=== PATIENT | male | born 1980 | race Caucasian/White ===

== ENCOUNTER → 2017-05-28 09:13 | Outpatient (CLI) | payer OTHER, SELFPAY ==
[2017-05-29 08:28] LABS: Hep B Surface Antibodies Reactive (.); Hepatitis A AB, Total Positive (Negative)
== END ==
PROVIDERS: Visit Provider Family Medicine
DX: Z76.89 Persons encountering health services in other specified circumstances (principal)
CPT/HCPCS: 36415; 86706; 86708

== ENCOUNTER → 2018-10-06 10:49 | Outpatient (CLI) | payer OTHER, SELFPAY ==
[2015-07-03 21:48] VITALS: BMI 20.9
[2018-10-06 12:46] LABS: Vitamin D,25 Hydroxy 25.9 ng/mL (29.95-100.01)
[2018-10-06 13:07] LABS: ALB/GLOB Ratio 1.1 RATIO (0.9-2.4); AST(SGOT) 17 U/L (15-37); Alanine Aminotransfer ALT/SGPT 21 U/L (16-61); Albumin, Serum 3.9 g/dL (3.2-5.0); Alkaline Phosphatase 59 U/L (45-117); Anion Gap 9 (5-15); BUN 13 mg/dL (7-18); BUN/Creat Ratio 17.4 RATIO (10-20); Calcium,Total 8.7 mg/dL (8.5-10.1); Chloride 105 mmol/L (98-107); Creatinine, Serum 0.75 mg/dL (0.70-1.30); EST Glomerular Filtration Rate 123 mL/min (>60); Est Glom Filt Rate - Afr Amer 149 mL/min (>60); Globulin 3.5 g/dL (2.2-4.2); Glucose 98 mg/dL (74-106); Potassium 4.1 mmol/L (3.5-5.1); Protein, Total 7.4 g/dL (6.4-8.2); Sodium Level 143 mmol/L (136-145); Thyroid Stim Hormone (TSH) 1.73 uIU/mL (0.358-3.74)
[2018-10-07 16:07] LABS: Endomysial Antibody IgA Negative (Negative)
[2018-10-08 11:45] LABS: Deamidated Gliadin IgA 6 units (0-19); Deamidated Gliadin IgG 3 units (0-19); Immunoglobulin A 136 mg/dL (90-386); t-Transglutaminase IgA <2 U/mL (0-3)
== END ==
PROVIDERS: Family Provider Family Medicine; PCP Family Medicine; Referring Provider Family Medicine; Visit Provider Family Medicine
DX: Z82.62 Family history of osteoporosis (principal)
CPT/HCPCS: 36415; 80053; 82306; 82784; 83516; 84443; 86255

== ENCOUNTER → 2018-11-18 10:52 | Outpatient (CLI) | payer OTHER, SELFPAY ==
[2018-11-10 09:00] VITALS: BMI 21.6
--- NOTE | 2018-11-18 10:55 | ECHOD_ITS ---
Reason For Study: AFIB/FLUTTER Procedure This was a 2D Doppler, Color Flow transthoracic echocardiogram. Exam performed in department. Left Ventricle Normal LV size. Left ventricular systolic function is normal. The estimated ejection fraction is 60 %. Normal diastology for age. No regional wall motion abnormalities noted. Right Ventricle Normal RV size. Normal systolic function. Atria Normal left atrium. Normal right atrium. Mitral Valve Normal mitral valve. Tricuspid Valve Normal tricuspid valve. Normal pulmonary artery pressure. Aortic Valve Normal aortic valve. Trisinus/trileaflet aortic valve. Pulmonic Valve Normal pulmonic valve. Great Vessels Normal aortic root. The pulmonary artery is normal size. Normal inferior vena cava. Pericardium/Pleural No pericardial effusion. MMode/2D Measurements & Calculations LVIDd: 4.9 cm IVSd: 0.79 cm Ao root diam: 2.9 cm LVIDs: 3.0 cm LVPWd: 0.90 cm RVDd: 3.0 cm FS: 38.5 % LAV(MOD-bp): 27.5 ml LA A4 area: 12.5 cm2 LA dimension(2D): 3.2 cm LAV(MOD-bp) Indexed: 14.6 ml/m2 LAV(MOD-sp2): 28.2 ml LAV(MOD-sp4): 26.4 ml RA A4 area: 14.5 cm2 Time Measurements MV dec time: 0.21 sec Doppler Measurements & Calculations MV E max roger: 100.2 cm/sec Lat Peak E' Roger: 19.0 cm/sec Med Peak E' Roger: 15.3 cm/sec MV A max roger: 50.6 cm/sec E/E' lat: 5.3 E/E' med: 6.6 MV E/A: 2.0 Ao V2 max: 99.9 cm/sec LV V1 max: 93.5 cm/sec PA V2 max: 96.2 cm/sec Ao max P.0 mmHg LV V1 max P.5 mmHg Interpretation Summary Normal LV size. Left ventricular systolic function is normal. The estimated ejection fraction is 60 %. Normal diastology for age. Structurally normal valves. Ordering Physician: Edgar Teague Referring Physician: Glenroy Doherty Performed By: Marilee Luis, MILENA, RVT
== END ==
PROVIDERS: Family Provider Family Medicine; PCP Family Medicine; Referring Provider Internal Medicine Cardiovascular Disease; Visit Provider Internal Medicine Cardiovascular Disease
DX: I48.91 Unspecified atrial fibrillation (principal); Z82.49 Family history of ischemic heart disease and other diseases of the circulatory system
CPT/HCPCS: 93306

== ENCOUNTER → 2018-11-19 09:36 | Outpatient (CLI) | payer OTHER, SELFPAY ==
[2018-11-10 09:00] VITALS: BMI 21.6
[2018-11-19 10:35] LABS: AST(SGOT) 15 U/L (15-37); Alanine Aminotransfer ALT/SGPT 18 U/L (16-61); Alkaline Phosphatase 56 U/L (45-117); Bilirubin, Direct 0.15 mg/dL (0.00-0.30); Cholesterol 142 mg/dL (200); Globulin 3.6 g/dL (2.2-4.2); High Density Lipoprotein 48 mg/dL; Protein, Total 7.6 g/dL (6.4-8.2); Triglycerides 72 mg/dL; Very Low Density Lipoprotein 14 mg/dL (5-40)
== END ==
PROVIDERS: Family Provider Family Medicine; PCP Family Medicine; Referring Provider Internal Medicine Cardiovascular Disease; Visit Provider Internal Medicine Cardiovascular Disease
DX: Z82.49 Family history of ischemic heart disease and other diseases of the circulatory system (principal)
CPT/HCPCS: 36415; 80061; 80076

== ENCOUNTER → 2019-12-01 11:14 | Outpatient (CLI) | payer OTHER, SELFPAY ==
[2018-11-10 09:00] VITALS: BMI 21.6
[2019-12-01 16:00] LABS: Absolute Lymphocyte Count 1.45 X10^3/uL (0.83-4.51); Absolute Neutrophil Count 2.3 X10^3/uL (2.0-7.7); Basophil# 0.05 X10^3/uL; Basophil% 1.2 % (0-1); Eosinophil# 0.08 X10^3/uL; Eosinophils% 1.9 % (0-5); Hematocrit 38.6 % (40-54); Hemoglobin 12.3 g/dL (13.0-16.5); Lymphocyte # 1.45 X10^3/ul (4.0); Mean Corp Hgb Conc 31.9 g/dL (32-36); Mean Corpuscular Hgb 27.3 pg (27.0-32.0); Mean Corpuscular Volume 85.8 fL (80-94); Mean Platelet Vol. 10.4 fl (6.2-12.0); Monocyte# 0.37 X10^3/uL; Monocyte% 8.7 % (0-10); NRBC Flagged by Analyzer 0 % (0-5); Neutrophil # 2.31 X10^3/uL (2.7-7.7); Platelet Count 278 K/mm3 (150-450); RBC Distribution Width SD 37.4 fl (35.1-43.9); White Blood Count 4.3 K/mm3 (4.4-11.0)
[2019-12-01 16:14] LABS: Erythrocyte Sedimentation Rate 2 mm/hr (0-15)
[2019-12-01 16:49] LABS: AST(SGOT) 17 U/L (15-37); Alanine Aminotransfer ALT/SGPT 23 U/L (16-61); Albumin, Serum 4.1 g/dL (3.2-5.0); Alkaline Phosphatase 53 U/L (45-117); Anion Gap 5 (5-15); BUN 14 mg/dL (7-18); Bilirubin, Direct 0.15 mg/dL (0.00-0.30); Chloride 103 mmol/L (98-107); Creatinine, Serum 0.81 mg/dL (0.70-1.30); EST Glomerular Filtration Rate 111 mL/min (>60); Est Glom Filt Rate - Afr Amer 134 mL/min (>60); Globulin 3.7 g/dL (2.2-4.2); Glucose 79 mg/dL (74-106); Potassium 3.7 mmol/L (3.5-5.1); Protein, Total 7.8 g/dL (6.4-8.2); Sodium Level 138 mmol/L (136-145); Uric Acid 4.2 mg/dL (3.5-7.2)
[2019-12-02 10:43] LABS: Hepatitis C Antibody Non-Reactive (Nonreactive)
[2019-12-08 16:08] LABS: Complement C3 88 mg/dL (82-167); PROEL- A/G Ratio 1.2 (0.7-1.7); PROEL- Albumin 4.1 g/dL (2.9-4.4); PROEL- Alpha-1 Globulin 0.3 g/dL (0.0-0.4); PROEL- Alpha-2 Globulin 0.7 g/dL (0.4-1.0); PROEL- Gamma Globulin 1.4 g/dL (0.4-1.8); PROEL- Globulin, Total 3.3 g/dL (2.2-3.9); PROEL- TOTAL PROTEIN 7.4 g/dL (6.0-8.5)
[2019-12-08 16:35] LABS: Complement CH50 35 U/mL (>41)
== END ==
PROVIDERS: PCP Family Medicine; Referring Provider Family Medicine; Visit Provider Family Medicine
DX: L50.9 Urticaria, unspecified (principal)
CPT/HCPCS: 36415; 80051; 80076; 82565; 82595; 82947; 84165; 84520; 84550; 85025; 85652; 86160; 86162; 86803

== ENCOUNTER → 2020-01-12 15:11 | Outpatient (CLI) | payer OTHER, SELFPAY ==
[2018-11-10 09:00] VITALS: BMI 21.6
[2020-01-12 18:47] LABS: CRP < 2.90 mg/L (0.0-3.0); Rheumatoid Factor < 10.0 IU/mL (<15)
[2020-01-16 16:25] LABS: C1 EST Inhibitor, Functional 100 (.); Complement CH50 35 U/mL (>41)
== END ==
PROVIDERS: PCP Family Medicine; Referring Provider Specialist; Visit Provider Specialist
DX: L50.1 Idiopathic urticaria (principal); M31.8 Other specified necrotizing vasculopathies
CPT/HCPCS: 36415; 86038; 86140; 86160; 86161; 86162; 86235; 86431

== ENCOUNTER → 2020-04-05 06:49 | Outpatient (CLI) | payer OTHER, SELFPAY ==
[2018-11-10 09:00] VITALS: BMI 21.6
--- NOTE | 2020-04-05 07:44 | RAD_ITS ---
STUDY: X-RAY - ESOPHAGUS (BARIUM SWALLOW) WITH FLUOROSCOPY REASON FOR EXAM: Male, 39 years old. NO REAL DYSPHAGIA COMPLAINTS. ORDERING M.D. CHECKING TO SEE IF PT IS PRONE TO AUTOIMMUNE DISEASE. 27 IMAGES TECHNIQUE: 27 view(s) of the esophagus were obtained following swallowing of barium. FLUOROSCOPY TIME (if supplied): (0:30) minutes/seconds COMPARISON: None. FINDINGS: There is no demonstrated esophageal foreign body. There is no demonstrated stricture or mucosal abnormality. Normal gastroesophageal junction, without a demonstrated hiatal hernia. The patient ingested a 12 mm tablet of barium without any difficulty. Normal visualized aortic arch and descending thoracic aorta. Normal visualized pulmonary parenchyma. Normal visualized osseous structures of the thorax. RAD/Esophagus Dual Contrast IMPRESSION: Normal plain film x-ray examination (barium swallow) of the esophagus. Electronically Signed: Charlie Muro, at 9:32 EST , Service support ,
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
== END ==
PROVIDERS: PCP Family Medicine; Referring Provider Internal Medicine Rheumatology; Visit Provider Internal Medicine Rheumatology
DX: R05 Cough (principal); R13.10 Dysphagia, unspecified
CPT/HCPCS: 74221; 94060; 94726; 94729

== ENCOUNTER 2021-02-18 17:47 | Emergency (ER) | payer OTHER, SELFPAY ==
[2021-02-18] VITALS (9 sets, daily range): BP systolic 116–144; BP diastolic 71–91; PULSE 59–84; RESP 14–18; TEMP 36.2; O2SAT 97–100; BMI 23.5
[2021-02-18] MEDS: Ondansetron 4 MG/2 ML Vial IV (18:36)
[2021-02-18] MEDS: Morphine 4 MG/ML Syringe IV (18:36)
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
[2021-02-18] MEDS: Propofol 200 MG/20 ML Vial IV BOLUS (22:18)
[2021-02-18] MEDS: Midazolam 2 MG/2 ML Syringe IV (22:18)
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
[2021-02-19] MEDS: oxyCODONE 5 MG Tablet PO (00:50)
[2021-02-19 01:03] VITALS: BP 133/84; PULSE 80; RESP 16; O2SAT 98
== END 2021-02-19 01:04 | disposition home or self-care (01) ==
PROVIDERS: Emergency Provider Emergency Medicine; PCP Family Medicine
DX: S52.502A Unspecified fracture of the lower end of left radius, initial encounter for closed fracture (principal); S52.614A Nondisplaced fracture of right ulna styloid process, initial encounter for closed fracture; V43.62XA Car passenger injured in collision with other type car in traffic accident, initial encounter; Y93.9 Activity, unspecified; Y92.89 Other specified places as the place of occurrence of the external cause; Y99.9 Unspecified external cause status
CPT/HCPCS: 25605; 71101; 72100; 73090; 73110; 73130; 96374; 96375; 99152; 99285; J7030; A4216; J2405

== ENCOUNTER → 2021-04-15 23:24 | Outpatient (CLI) | payer OTHER, SELFPAY | PROVIDERS: PCP Family Medicine; Visit Provider Family Medicine | DX: Z23 Encounter for immunization (principal) ==

== ENCOUNTER 2021-07-23 07:30 | Outpatient (RCR) | payer BC, OTHER, SELFPAY ==
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
--- NOTE | 2021-04-10 14:05 | OTREVAL_ITS ---
Dr. Kendell Cuevas, DO, It has been my pleasure to treat CORBY WONG over the last 6 visits for right radius fx, left Bartons fx left LF prox. phalanx fx. Please see the progress note below for an update on the occupational therapy plan of care! 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 right lateral pinch 12#. right tripod pinch 12#. right wrist 55/45. left wrist 35/35. following OT manual session pt demo increase MCP and PIP flex to within 2.5cm. left IF & MF MCP flex at 65* flex. RF MCP flex at 55*. LF at 45*. left IF PIP flex 100. left MF PIP flex 95. left RF PIP flex 80. left LF PIP flex 10. left forearm supination 50*. pt making great gains with right UE. left continues to struggle with gaining functional ROM and pt struggles with edema of hand- (he is using compressing glove). please let me know how aggressive we can pursue left ROM of LF/wrist -. and how do you feel about a static progressive orthosis to increase composite fist of left. Plan Frequency: 2-3x /Week Duration: 6 Weeks Plan: cont with POC will initiate PROM of left forearm wrist and LF MCP at 6 weeks s/p Goals - Goals Patient Goals: Regain Mobility, Regain Strength, Decrease Swelling/Stiffness, Use Hand/Wrist/Arm Normally Again, Be More Independent in ADLS Goal:: at 10 weeks s/p PT will demo a clay processing labourer strength of 65# right and 55# left to increase pts independent with basic occupations of daily living to return pt to PLOF by D/C. Pt will demo an increase in bilateral lateral and tripod pinch to 10# to increase pts independent with opening baggies, containers at PLOF by D/C. Goal:: pt will demo a increase in right wrist ROM to 65/60 to increase pts ind. with ADls and IADLs by d.c. pt will demo a increase in left forearm supination to 70* or greater to receive coins, or hold objects without compensation by d.c. pt will demo a increase in left wrist ROM to 65/55 to increase pts ind. with ADLs and IADls by d.c. pt will demo the ability to form a composite fist with left hand to hold small objects ind, by d/c Goal:: pt will report no pain greater than 2/10 with use of bilateral UE with ADLs and IADLs by d/c Goal:: pt will demo a reduction in edema by 75% in 2 weeks. Goal:: pt will demo understanding of scar mtg by end of 3rd session to decrease scar adhesion. Anticipated Interventions Anticipated Interventions: A/AAROM/PROM, Strengthening, Edema Control, Scar Care, Triggerpoint Release, Desensitization, Sensory Retraining, Modalities, Orthoses, Joint Protection/Energy Conservation, Ergonomic Education, Education re assistive Equipment, Education re Diagnosis, Home Program Please do not hesitate to contact me at [phone] by phone or Fax: if you have questions or concerns regarding this new plan of care! Sincerely, Leonela Hernandez, OTR/L, CHT
--- NOTE | 2021-04-17 12:44 | OTREVAL_ITS ---
Dr. Kendell Cuevas, DO, It has been my pleasure to treat CORBY WONG over the last 8 visits for right radius fx, left Bartons fx left LF prox. phalanx fx. Please see the progress note below for an update on the occupational therapy plan of care! Subjective: pt was add-on on schedule - this therapist worked with left wrist and hand (10:30-11:00). jarrett 11-11:30 on right. received clearance from for increase aggressive therapy-. pt arrives states he is doing great with right but left continues to lag behind. 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 right lateral pinch 12#. right tripod pinch 12#. right wrist 55/45. left wrist 35/35. following OT manual session pt demo increase MCP and PIP flex to within 2.5cm. left IF & MF MCP flex at 65* flex. RF MCP flex at 55*. LF at 45*. left IF PIP flex 100. left MF PIP flex 95. left RF PIP flex 80. left LF PIP flex 10. left forearm supination 50*. pt making great gains with right UE. left continues to struggle with gaining functional ROM and pt struggles with edema of hand- (he is using compressing glove). please let me know how aggressive we can pursue left ROM of LF/wrist -pt would benefit from use of a dynamic WHFO - will contact for approval and reach out to vendor Plan Frequency: 2-3x /Week Duration: 6 Weeks Plan: cont w/POC Goals - Goals Patient Goals: Regain Mobility, Regain Strength, Decrease Swelling/Stiffness, Use Hand/Wrist/Arm Normally Again, Be More Independent in ADLS Goal:: at 10 weeks s/p PT will demo a leather goods sales representative strength of 65# right and 55# left to increase pts independent with basic occupations of daily living to return pt to PLOF by D/C. Pt will demo an increase in bilateral lateral and tripod pinch to 10# to increase pts independent with opening baggies, containers at PLOF by D/C. Goal:: pt will demo a increase in right wrist ROM to 65/60 to increase pts ind. with ADls and IADLs by d.c. pt will demo a increase in left forearm supination to 70* or greater to receive coins, or hold objects without compensation by d.c. pt will demo a increase in left wrist ROM to 65/55 to increase pts ind. with ADLs and IADls by d.c. pt will demo the ability to form a composite fist with left hand to hold small objects ind, by d/c Goal:: pt will report no pain greater than 2/10 with use of bilateral UE with ADLs and IADLs by d/c Goal:: pt will demo a reduction in edema by 75% in 2 weeks. Goal:: pt will demo understanding of scar mtg by end of 3rd session to decrease scar adhesion. Anticipated Interventions Anticipated Interventions: A/AAROM/PROM, Strengthening, Edema Control, Scar Care, Triggerpoint Release, Desensitization, Sensory Retraining, Modalities, Orthoses, Joint Protection/Energy Conservation, Ergonomic Education, Education re assistive Equipment, Education re Diagnosis, Home Program Please do not hesitate to contact me at [phone] by phone or if you have questions or concerns regarding this new plan of care! Sincerely, Leonela Hernandez, OTR/L, CHT
--- NOTE | 2021-05-06 17:54 | HP.OTREVAL ---
Dr. Kendell Cuevas, DO, It has been my pleasure to treat CORBY WONG over the last 13 visits for right radius fx, left Bartons fx left LF prox. phalanx fx. Please see the progress note below for an update on the occupational therapy plan of care! Subjective: Pt arrived 10 min late to session. Objective/Function: right wrist ROM 55/53. right forearm supination WNL. 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 right lateral pinch 14#. right tripod pinch 12#. left wrist ROM 45/30. left forearm supination 70*. left metal sponge making machine operator strength 18#. left lateral pinch 12#. left tripod pinch 8#. L IF MCP flex 60 PIP 100 DIP 65. L MFMCP flex 60 PIP 100 DIP 65. left RF MCP 55 PIP 90 DIP 40. left LF MCP 55 PIP 20 DIP 15*. pts right is doing well- would rec'd DC right treatments to focus on left -. therapy is using compression and k-tape to assist with edema mtg- PROM, blocking and place and hold exercise are being performed-. with left LF PIP blocking therapist notes min tendon involvement/or tension with blocking - passive LF PIP flexion motion has improved by 40* however AROM increased 10*. pt is using a number of different devices to to increase PIP flex of LF - Plan Frequency: 2-3x /Week Duration: 6 Weeks Plan: cont POC Goals - Goals Patient Goals: Regain Mobility, Regain Strength, Decrease Swelling/Stiffness, Use Hand/Wrist/Arm Normally Again, Be More Independent in ADLS Goal:: at 10 weeks s/p PT will demo a metal sponge making machine operator strength of 65# right and 55# left to increase pts independent with basic occupations of daily living to return pt to PLOF by D/C. Pt will demo an increase in bilateral lateral and tripod pinch to 10# to increase pts independent with opening baggies, containers at PLOF by D/C. Goal:: pt will demo a increase in right wrist ROM to 65/60 to increase pts ind. with ADls and IADLs by d.c. pt will demo a increase in left forearm supination to 70* or greater to receive coins, or hold objects without compensation by d.c. pt will demo a increase in left wrist ROM to 65/55 to increase pts ind. with ADLs and IADls by d.c. pt will demo the ability to form a composite fist with left hand to hold small objects ind, by d/c Goal:: pt will report no pain greater than 2/10 with use of bilateral UE with ADLs and IADLs by d/c Goal:: pt will demo a reduction in edema by 75% in 2 weeks. Goal:: pt will demo understanding of scar mtg by end of 3rd session to decrease scar adhesion. Anticipated Interventions Anticipated Interventions: A/AAROM/PROM, Strengthening, Edema Control, Scar Care, Triggerpoint Release, Desensitization, Sensory Retraining, Modalities, Orthoses, Joint Protection/Energy Conservation, Ergonomic Education, Education re assistive Equipment, Education re Diagnosis, Home Program Please do not hesitate to contact me at [phone] by phone or if you have questions or concerns regarding this new plan of care! Sincerely, Leonela Hernandez, OTR/L, CHT
--- NOTE | 2021-05-08 10:03 | OTREVAL_ITS ---
Dr. Kendell Cuevas, DO, It has been my pleasure to treat CORBY WONG over the last 14 visits for right radius fx, left Bartons fx left LF prox. phalanx fx. Please see the progress note below for an update on the occupational therapy plan of care! Subjective: pt arrives to session -states he is getting frustrated with limited LF PIP flex- and limited composite fist- wrist is doing better- Objective/Function: right wrist ROM 55/53. right forearm supination WNL. right calender supervisor strength 55#. right lateral pinch 14#. right tripod pinch 12#. left wrist ROM 45/30. left forearm supination 70*. left calender supervisor strength 18#. left lateral pinch 12#. left tripod pinch 8#. L IF MCP flex 60 PIP 100 DIP 65. L MFMCP flex 60 PIP 100 DIP 65. left RF MCP 55 PIP 90 DIP 40. left LF MCP 55 PIP 20 DIP 15*. pts right is doing well- would rec'd DC right treatments to focus on left -. therapy is using compression and k-tape to assist with edema mtg- PROM, blocking and place and hold exercise are being performed-. with left LF PIP blocking therapist notes min tendon involvement/or tension with blocking - passive LF PIP flexion motion has improved by 40* however AROM increased 10*. pt is using a number of different devices to to increase PIP flex of LF - Passive hold- blocking- static progressive bracing- use of cupping and k-tape to assist in decreasing edema and gaining soft tissue mobility - Plan Frequency: 1-2x /Week Duration: 6 Weeks Plan: cont POC Goals - Goals Patient Goals: Regain Mobility, Regain Strength, Decrease Swelling/Stiffness, Use Hand/Wrist/Arm Normally Again, Be More Independent in ADLS Goal:: at 10 weeks s/p PT will demo a calender supervisor strength of 65# right and 55# left to increase pts independent with basic occupations of daily living to return pt to PLOF by D/C. Pt will demo an increase in bilateral lateral and tripod pinch to 10# to increase pts independent with opening baggies, containers at PLOF by D/C. Goal:: pt will demo a increase in right wrist ROM to 65/60 to increase pts ind. with ADls and IADLs by d.c. pt will demo a increase in left forearm supination to 70* or greater to receive coins, or hold objects without compensation by d.c. pt will demo a increase in left wrist ROM to 65/55 to increase pts ind. with ADLs and IADls by d.c. pt will demo the ability to form a composite fist with left hand to hold small objects ind, by d/c Goal:: pt will report no pain greater than 2/10 with use of bilateral UE with ADLs and IADLs by d/c Goal:: pt will demo a reduction in edema by 75% in 2 weeks. Goal:: pt will demo understanding of scar mtg by end of 3rd session to decrease scar adhesion. Anticipated Interventions Anticipated Interventions: A/AAROM/PROM, Strengthening, Edema Control, Scar Care, Triggerpoint Release, Desensitization, Sensory Retraining, Modalities, Orthoses, Joint Protection/Energy Conservation, Ergonomic Education, Education re assistive Equipment, Education re Diagnosis, Home Program Please do not hesitate to contact me at [phone] by phone or if you have questions or concerns regarding this new plan of care! Sincerely, Leonela Hernandez, OTR/L, CHT
== END 2021-07-23 19:00 | disposition home or self-care (01) ==
LOC: OT 07:30
PROVIDERS: PCP Family Medicine; Visit Provider Student in an Organized Health Care Education/Training Program
DX: S52.562D Barton's fracture of left radius, subsequent encounter for closed fracture with routine healing (principal); S52.514D Nondisplaced fracture of right radial styloid process, subsequent encounter for closed fracture with routine healing; S62.617D Displaced fracture of proximal phalanx of left little finger, subsequent encounter for fracture with routine healing; X58.XXXD Exposure to other specified factors, subsequent encounter
CPT/HCPCS: 97035; 97110; 97140; 97166; 97530

== ENCOUNTER → 2021-12-16 | Outpatient (CLI) | payer BC, SELFPAY ==
[2021-12-16 13:15] LABS: Absolute Lymphocyte Count 1.67 X10^3/uL (0.83-4.51); Absolute Neutrophil Count 2.4 X10^3/uL (2.0-7.7); Basophil# 0.06 X10^3/uL; Basophil% 1.3 % (0-1); Eosinophil# 0.08 X10^3/uL; Eosinophils% 1.7 % (0-5); Hematocrit 36.7 % (40-54); Hemoglobin 12.1 g/dL (13.0-16.5); Lymphocyte # 1.67 X10^3/ul (0.83-4.51); Lymphocyte % 35.8 % (19-41); Mean Corpuscular Hgb 28.1 pg (27.0-32.0); Mean Corpuscular Volume 85.3 fL (80-94); Mean Platelet Vol. 9.1 fl (6.2-12.0); Monocyte# 0.47 X10^3/uL; Monocyte% 10.1 % (0-10); NRBC Flagged by Analyzer 0 % (0-5); Neutrophil # 2.37 X10^3/uL (2.7-7.7); Neutrophil % 50.9 % (47-70); Platelet Count 267 K/mm3 (150-450); RBC Distribution Width CV 13.4 % (11.6-14.6); RBC Distribution Width SD 41.9 fl (35.1-43.9); White Blood Count 4.7 K/mm3 (4.4-11.0)
== END | disposition home or self-care (01) ==
LOC: PAVLAB 13:05
PROVIDERS: PCP Family Medicine; Referring Provider Internal Medicine Rheumatology; Visit Provider Internal Medicine Rheumatology
DX: D72.819 Decreased white blood cell count, unspecified (principal)
CPT/HCPCS: 36415; 85025

== ENCOUNTER → 2022-01-30 | Outpatient (CLI) | payer BC, SELFPAY ==
[2022-01-30 11:01] LABS: Hematocrit 43.3 % (40-54)
[2022-01-30 11:32] LABS: Ferritin 8 ng/mL (26-388); Iron Binding Capacity,Total 449 ug/dL (250-450)
== END | disposition home or self-care (01) ==
LOC: PAVLAB 10:45
PROVIDERS: PCP Family Medicine; Referring Provider Family Medicine; Visit Provider Family Medicine
DX: D50.9 Iron deficiency anemia, unspecified (principal)
CPT/HCPCS: 36415; 82728; 83550; 85014; 85018

== ENCOUNTER 2022-02-10 13:00 | Outpatient (RCR) | payer BC, SELFPAY ==
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
--- NOTE | 2021-11-06 08:48 | OTREVAL_ITS ---
NAOMY BUSTILLO MD, It has been my pleasure to treat CORBY WONG over the last 5 visits for left hand pain. Please see the progress note below for an update on the occupational therapy plan of care! Subjective: pt arrives to OT dept- pt consentient in performing his HEP- using night orthosis to increase ext as during the day pt finger pulls more into fl exion- pt doing aggressive blocking PROM of flex and ex along with using LMB at times thorough the day to decrease extensor lag- Objective/Function: active motion of left LF -30/40* flex indicating PIP active total ROM 10*. PROM of PIP can reach 70* flexion and -15* extension ( therapist applying much force) Pt tolerates force of PROM well). left LF -25/40* (upon arrival with LMB spring splint on ). right LF 0/95*. May 08 2020 therapist notes on LF ROM:with left LF PIP blocking therapist notes min tendon involvement/or tension with blocking - passive LF PIP flexion motion has improved by 40* however AROM increased 10*. pt is using a number of different devices to to increase PIP flex of LF - Passive hold- blocking- static progressive bracing- LMB to decrease extensor lag- pt is performing scar mtg- but pt demo with extensor tendon scar adhesions- pt works with his hand constantly- and has make minimal gains with is flexion /extension balance- Plan Frequency: 2-3x /Week Duration: 2 Months Plan: place and hold. PROM. blocking and revers blocking. night orthosis to decrease extensor lag. scar mtg with use of wooden dowel and elastomer. AROM Goals - Goals Patient Goals: Regain Mobility, Regain Strength, Improve Fine Motor Skills Goal:100% adherence to protocol: Yes Goal:Daily scar massage when approriate: Yes Goal:ROM equal to unaffected hand: Yes Goal:Preventive Medicine Specialist/Pinch strength at least 75% of unaffected hand: Yes Goal:No pain with affected hand use: Yes Goal:PIP Circumferences equal to unaffected hand: Yes Goal:Full use of affected hand in daily activities including: Yes Goal:Decrease scar hypersensitivity: Yes Anticipated Interventions Anticipated Interventions: A/AAROM/PROM, Strengthening, Edema Control, Scar Care, Modalities, Orthoses, Joint Protection/Energy Conservation, Fine Motor Coord/José, Education re Diagnosis, Home Program Please do not hesitate to contact me at [phone] by phone or if you have questions or concerns regarding this new plan of care! Sincerely, Leonela Hernandez OTR/L, CHT
--- NOTE | 2022-04-09 11:58 | HP.OT.NRP ---
LCUIEN WONG was seen in my office for initial evaluation on 10/01/21. The following Plan of Care was established for this patient: Initial Frequency: 2-3x /Week Initial Duration: 2 Months Plan: gym qu. to increase functional strength Anticipated Interventions: A/AAROM/PROM, Strengthening, Edema Control, Scar Care, Modalities, Orthoses, Joint Protection/Energy Conservation, Fine Motor Coord/José, Education re Diagnosis, Home Program This patient was last seen in our office 02/10/22. Pertinent comments regarding their Occupational therapy will appear below: Lucien was given HEP that included gym eq. to increase overall UB strength. Pts LF did not gain ROM following sx. pt was given HEP and is able to contact CHT if needed. No further apts scheduled and due to time lapse in services pt d.c at this time. At this point I will be discontinuing this patient from occupational therapy. I would be happy to see this patient again in the future if found appropriate by the physician. Thank you! Leonela Hernandez, OTR/L, CHT
== END 2022-02-10 19:00 | disposition home or self-care (01) ==
LOC: OT 13:00
PROVIDERS: PCP Family Medicine; Referring Provider Orthopaedic Surgery; Visit Provider Orthopaedic Surgery
DX: M79.643 Pain in unspecified hand (principal)
CPT/HCPCS: 97110; 97140; 97166; 97530

== ENCOUNTER → 2022-08-28 | Outpatient (CLI) | payer BC, SELFPAY ==
[2022-08-28 09:15] LABS: Absolute Lymphocyte Count 1.36 X10^3/uL (0.83-4.51); Absolute Neutrophil Count 2.2 X10^3/uL (2.0-7.7); Basophil# 0.04 X10^3/uL; Eosinophil# 0.12 X10^3/uL; Hematocrit 44.9 % (40-54); Hemoglobin 15.5 g/dL (13.0-16.5); Lymphocyte # 1.36 X10^3/ul (0.83-4.51); Lymphocyte % 33.7 % (19-41); Mean Corp Hgb Conc 34.5 g/dL (32-36); Mean Corpuscular Hgb 30.7 pg (27.0-32.0); Mean Corpuscular Volume 88.9 fL (80-94); Mean Platelet Vol. 8.7 fl (6.2-12.0); Monocyte# 0.34 X10^3/uL; Monocyte% 8.4 % (0-10); NRBC Flagged by Analyzer 0 % (0-5); Neutrophil # 2.18 X10^3/uL (2.7-7.7); Neutrophil % 53.9 % (47-70); Platelet Count 242 K/mm3 (150-450); RBC Distribution Width CV 11.8 % (11.6-14.6); RBC Distribution Width SD 38.3 fl (35.1-43.9); Red Blood Count 5.05 M/mm3 (4.6-6.2)
[2022-08-28 09:32] LABS: Ferritin 36 ng/mL (26-388); Iron Binding Capacity,Total 314 ug/dL (250-450)
== END | disposition home or self-care (01) ==
LOC: PAVLAB 08:55
PROVIDERS: PCP Family Medicine; Referring Provider Family Medicine; Visit Provider Family Medicine
DX: D50.9 Iron deficiency anemia, unspecified (principal)
CPT/HCPCS: 36415; 82728; 83550; 85025

== ENCOUNTER → 2022-09-01 | Outpatient (CLI) | payer BC, SELFPAY ==
--- NOTE | 2022-09-01 15:08 | NEURO ---
NCS and/or EMG Patient Report Ordering Doctor: Joaquín Roberts DATE OF SERVICE: 09/01/22 Indication: Approximately 6 months of right lower extremity fatigue. No associated ebony muscle weakness or sensory disturbance. No localized or radicular back pain. Findings: Nerve conduction studies were performed in the right lower extremity. The right peroneal motor study recording the extensor digitorum brevis showed a normal amplitude, normal distal latency and normal conduction velocity. No conduction block or focal slowing was present across the fibular neck. The right peroneal motor study recording the tibialis anterior showed a normal amplitude, normal distal latency and normal conduction velocity. No conduction block or focal slowing was present across the fibular neck. The right tibial motor study recording the abductor hallucis brevis showed a normal amplitude, normal distal latency and normal conduction velocity. The right sural sensory response showed a normal amplitude and conduction velocity. The right superficial peroneal sensory response showed a normal amplitude and conduction velocity. Needle EMG of the right lower extremity muscles was performed. No denervation was present in any muscle. Motor unit morphology, activation, and recruitment patterns were normal. Impression: This is a normal study. There is no electrophysiologic evidence of right peroneal neuropathy. In addition, there is no definite electrophysiologic evidence of sciatic neuropathy, lumbosacral plexopathy or radiculopathy in the right lower extremity. Tomas Vazquez D.O. Multi Select Codes Neurology Neurology Interp Codes: 84827-26 Musc test done w/n test comp (interp) and 08462-52 Nr cndj tst 5-6 studies (interp)
== END | disposition home or self-care (01) ==
PROVIDERS: PCP Family Medicine; Referring Provider Podiatrist Foot & Ankle Surgery; Visit Provider Podiatrist Foot & Ankle Surgery
DX: R29.898 Other symptoms and signs involving the musculoskeletal system (principal)
CPT/HCPCS: 95886; 95909

== ENCOUNTER → 2023-03-12 | Outpatient (CLI) | payer BC, SELFPAY ==
[2023-03-12 10:17] LABS: ALB/GLOB Ratio 1.1 RATIO (0.9-2.4); AST(SGOT) 16 U/L (15-37); Alanine Aminotransfer ALT/SGPT 19 U/L (16-61); Albumin, Serum 3.9 g/dL (3.2-5.0); Alkaline Phosphatase 69 U/L (45-117); Anion Gap 1 (5-15); BUN 14 mg/dL (7-18); BUN/Creat Ratio 16.8 RATIO (10-20); Calcium,Total 8.5 mg/dL (8.5-10.1); Chloride 105 mmol/L (98-107); Creatinine, Serum 0.83 mg/dL (0.70-1.30); EST Glomerular Filtration Rate 107 mL/min (>60); Est Glom Filt Rate - Afr Amer 129 mL/min (>60); Globulin 3.7 g/dL (2.2-4.2); Glucose 94 mg/dL (74-106); Protein, Total 7.6 g/dL (6.4-8.2); Sodium Level 138 mmol/L (136-145)
[2023-03-12 10:55] LABS: Hepatitis B Surface Antibody Reactive; Hepatitis B Surface Antigen Non-Reactive (Nonreactive); Hepatitis C Antibody Non-Reactive (Nonreactive)
[2023-03-13 05:07] LABS: Hepatitis A AB, Total Positive (Negative); Hepatitis B Core Ab Total Negative (Negative)
== END | disposition home or self-care (01) ==
LOC: PAVLAB 09:30
PROVIDERS: PCP Family Medicine; Referring Provider Family Medicine; Visit Provider Family Medicine
DX: R79.9 Abnormal finding of blood chemistry, unspecified (principal)
CPT/HCPCS: 36415; 80053; 86704; 86706; 86708; 86803; 87340

== ENCOUNTER 2023-06-18 13:00 | Outpatient (RCR) | payer BC, SELFPAY ==
--- NOTE | 2023-06-12 13:40 | HP.OTEVAL ---
Patient's Visit Information Visit Information Visit Information: CORBY WONG is a 42 year old M, referred to Occupational Therapy by Dr. 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 Date of Evaluation: 06/10/23 Occupational Therapist: Leonela Hernandez, LELAND/Dylan, CHT Subjective Subjective: This 42 year old male was seen for OT eval with dx of left elbow pain. pt states left elbow pain 4-6 weeks no specific injury. Pt states with use of left UE with he will get pain some pain with touch after an activity. 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 Also has a basketball group he plays with. Pt also does strength training 2x a week for 20 min. Pt would like to decrease his pain and return to his PLOF. Pain left elbow: Current Pain Intensity: 2 Pain Intensity Range: 2 and 4 ROM Elbow: right 0/145 left 0/145 ROM Comments: pt demo with elbow ROM WNL Strength Financial Operations Consultant: right 95 left 60# Lateral Pinch: right 14# left 14# Tripod Pinch: right 12# left 10# Strength Comments: elbow straight 100# left 70# with pain Special Tests Lat Epiconylitis - as named: left positive symptoms Quick DASH-Disab of Arm,Shoulder& Hand Quick DASH Score: 14.4725 Goals Goal:: pt will demo a increase in left eyelet cutter strength by 10# with no pain to return pt to his PLOF. Goal:: pt will report no pain with daily exercise and performance of ADLS and IADLs by dc Goal:: Pt will demo understanding of work/lifting and carry ergonomics to decrease stress on tendons to increase pts independent with ADLs, IADLS and work tasks by d/c. Goal:: Pt will demo understanding of using supportive bracing 80% of workday/ADLS to decrease stress on tendon origin to allow healing and decrease pain by end of 2nd session. Goal:: Pt will report using lateral epicondylitis precautions while performing ADLs and work tasks by end of 2nd session. Rehabilitation General Assessment: Pt arrives to OT with symptoms of left elbow pain. Pain increases with grasping items out in front of him palms down. This is limiting pts IND with ADLs IADLs and work tasks. Pt would benefit from skilled OT services 1-2x week for 6 weeks. Today therapist ed.pt on precautions that will limit stress on extensor tendons while he is working, work ergo with desk set up to ensure keyboard is not to far away from him. Therapist ed pt on use of counterforce brace and will transition into-eccentric ex. Therapist will also work on wrist/elbow ergo to prevent tendon stess. Pt demo understanding and agree to POC. Rehabilitation Potential: Good Anticipated Interventions Anticipated Interventions: A/AAROM/PROM, Strengthening, Triggerpoint Release, Modalities, Orthoses, Joint Protection/Energy Conservation, Ergonomic Education, Education re assistive Equipment, Education re Diagnosis and Home Program Visit Plan Frequency: 2-3x /Week Duration: 6 Weeks TEXT: Thank you for the opportunity to evaluate your patient. For Medicare and Medicare HMO plans, please review the plan of care and approve it. It will need to be FAXED BACK to us at [phone] for Medicare purposes. Please let me know if there are questions or concerns regarding this plan of care. Physician Signature: Date:
--- NOTE | 2023-11-27 08:42 | HP.OT.NRP ---
Patient Information Patient Information: CORBY WONG was seen in my office for initial evaluation on 06/10/23. The following Plan of Care was established for this patient: POC Established Initial Frequency: 2-3x /Week Initial Duration: 6 Weeks Anticipated Interventions Anticipated Interventions: A/AAROM/PROM, Strengthening, Triggerpoint Release, Modalities, Orthoses, Joint Protection/Energy Conservation, Ergonomic Education, Education re assistive Equipment, Education re Diagnosis and Home Program Last Seen Last Seen: This patient was last seen in our office 06/18/23. Pertinent comments regarding their Occupational therapy will appear below: pt was last seen on 06/18/23. No further apts scheduled at this time. Pt is D/c. At this point I will be discontinuing this patient from occupational therapy. I would be happy to see this patient again in the future if found appropriate by the physician. Thank you! Leonela Hernandez, OTR/L, CHT
== END 2023-06-18 19:00 | disposition home or self-care (01) ==
LOC: OT 13:00
PROVIDERS: PCP Family Medicine; Referring Provider Family Medicine; Visit Provider Family Medicine
DX: M24.542 Contracture, left hand (principal); M25.529 Pain in unspecified elbow; Z87.828 Personal history of other (healed) physical injury and trauma
CPT/HCPCS: 97035; 97110; 97140; 97166; 97530

== ENCOUNTER 2024-07-18 07:51 | Day surgery (SDC) | payer BC, SELFPAY ==
[2024-07-18] VITALS (8 sets, daily range): BP systolic 94–124; BP diastolic 59–74; PULSE 58–69; RESP 14–20; TEMP 36–36.6; O2SAT 97–100; BMI 22.2
--- NOTE | 2024-07-18 08:10 | HP.PCM_ITS ---
HPI - General General Date of Service: 07/18/24 HPI Narrative CORBY WONG, is a 43 M who presents for an EGD as he has been worked up for CREST syndrome, as well as colonoscopy due to colon cancer screening. Patient has bowel movements daily denies any blood. Patient never had previous colonoscopy. Patient denies any chronic abdominal pain/nausea/vomiting. Patient has admitted to some difficulty swallowing thus is being worked up for possible CREST. Patient denies any family history of colon cancer [facility] Medical History (Updated 07/18/24 @ 08:[address] Cadence Armendariz MD) Loss of consciousness Difficulty swallowing Non-smoker Urticaria Iron deficiency anemia Vitamin D deficiency Home Medications ?Medication ?Instructions ?Recorded ?Last Taken ?Type NK 07/14/24 Unknown History Allergy/AdvReac Type Severity Reaction Status Date / Time No Known Allergies Allergy Verified 07/14/24 15:56 Family History (Updated 05/17/24 @ 16:14 by Elli George) Father Heart disease Atrial Flutter/RFA/MVP Osteoporosis Father's brothers and sisters also have osteoporsis Grandfather CVA (cerebral vascular accident) Mother Glaucoma Social History (Updated 05/17/24 @ 16:15 by Elli George) household members: spouse and children number of children: 2 current occupational status: employed current occupation: [employer] Smoking Status: Never smoker alcohol intake: never substance use type: does not use caffeine: Yes (twice a month) Type: coffee Past Medical/Surgical History Planned Operation Planned Operative Procedure(s): COLONOSCOPY Respiratory Do You Snore Loudly (louder than talking or can be heard): No Do You Often Feel Tired/ Fatigued/ Sleepy Dring Daytime?: No Has Anyone Observed You Stop Breathing During Sleep?: No Result (for STOP score): Negative Smoking Status: Never smoker Reproduction : No Allergies No Known Allergies Allergy (Verified 07/14/24 15:56) Discharge Is Pt Admitted From a Correction, or a Alf: No After D/C, Where Do you Plan to Go: Return Home Physical Exam Const alert, oriented x3 and no apparent distress HEENT normocephalic and head/scalp atraumatic Resp normal respiratory effort Cardio regular rate GI soft to palpation and non-tender; Negative for non-distended Palpation: Negative for guarding Extremity no clubbing, cyanosis or edema Skin no rashes or lesions noted Neuro CN's II-XII intact bilaterally Psych mental status grossly normal Assessment & Plan Assessment/Plan (1) Encounter for screening for malignant neoplasm of colon: (2) Difficulty swallowing: Surgery Risks - Colonoscopy I discussed with the patient the risks of the procedure: Yes Risks Include but are not Limited To: Plan to do an EGD and colonoscopy risks include but are not limited to: Bleeding, perforation requiring further surgery, inability to complete colonoscopy requiring barium enema.
--- NOTE | 2024-07-18 08:10 | H&P.OPEN ---
[facility] - General General Date of Service: 07/18/24 HPI Narrative CORBY WONG, is a 43 M who presents for colonoscopy due to colon cancer screening. Attempted to get an EGD due to crest syndrome however that was not presorted. Patient has bowel movements daily denies any blood. Patient never had previous colonoscopy. Patient denies any chronic abdominal pain/nausea/vomiting. Patient has admitted to some difficulty swallowing feels like he is not able to completely swallow?of her throat but does not feel like food completely gets stuck or he is choking on it. Patient states he initially noticed it with them often in March or April and it happened again. Thus is being worked up for possible CREST?patient already sees rheumatology for this.. Patient denies any family history of colon cancer [facility] Medical History (Updated 07/18/24 @ 09:[address] Sav Beckham MD) Loss of consciousness Difficulty swallowing Non-smoker Urticaria Iron deficiency anemia Vitamin D deficiency Home Medications ?Medication ?Instructions ?Recorded ?Last Taken ?Type NK 07/14/24 Unknown History Allergy/AdvReac Type Severity Reaction Status Date / Time No Known Allergies Allergy Verified 07/18/24 08:35 Family History Father Heart disease Atrial Flutter/RFA/MVP Osteoporosis Father's brothers and sisters also have osteoporsis Grandfather CVA (cerebral vascular accident) Mother Glaucoma Surgical History (Updated 07/18/24 @ 09:[address] Sav Beckham MD) S/P tonsillectomy Wrist fracture, bilateral Social History household members: spouse and children number of children: 2 current occupational status: employed current occupation: [employer] Smoking Status: Never smoker alcohol intake: never substance use type: does not use caffeine: Yes (twice a month) Type: coffee Past Medical/Surgical History Planned Operation Planned Operative Procedure(s): COLONOSCOPY Respiratory Do You Snore Loudly (louder than talking or can be heard): No Do You Often Feel Tired/ Fatigued/ Sleepy Dring Daytime?: No Has Anyone Observed You Stop Breathing During Sleep?: No Result (for STOP score): Negative Smoking Status: Never smoker Reproduction : No Allergies No Known Allergies Allergy (Verified 07/18/24 08:35) Discharge Is Pt Admitted From a [facility], or a Usp: No After D/C, Where Do you Plan to Go: Return Home Physical Exam Const alert, oriented x3 and no apparent distress HEENT normocephalic and head/scalp atraumatic Resp normal respiratory effort Cardio regular rate GI soft to palpation and non-tender; Negative for non-distended Palpation: Negative for guarding Extremity no clubbing, cyanosis or edema Skin no rashes or lesions noted Neuro CN's II-XII intact bilaterally Psych mental status grossly normal Assessment & Plan Assessment/Plan (1) Encounter for screening for malignant neoplasm of colon: (2) Difficulty swallowing: PLAN: Plan EGD was not restarted will try to get presurgery to get this done. Will only do colonoscopy currently?discussed with patient and his . Surgery Risks - Colonoscopy I discussed with the patient the risks of the procedure: Yes Risks Include but are not Limited To: risks include but are not limited to: Bleeding, perforation requiring further surgery, inability to complete colonoscopy requiring barium enema.
--- NOTE | 2024-07-18 09:04 | PRE.ANES_ITS ---
ASA Classification* ASA Classification ASA Classification: 2 Assessment & Plan Anesthesia* Anesthesia Assessment Anesthesia Assessment: Discussed sedation and/or anesthesia options, risks, benefits, and alternatives with patient/parents/legal guardian/POA. Questions invited. The patient/parents/legal guardian/POA seems to understand and agrees to proceed with anesthesia plan. Reviewed the physical assessment, medical history, allergy history and patient home medications list prior to surgery/procedure/anesthetic and documented any changes. Performed airway and anesthesia risk assessments. Anesthesia Type Anesthesia Type: MAC History Source History Obtained from:: Patient and Chart Anesthesia Focused Assessment* Temperature: 97.8 F Pulse Rate: 63 Blood Pressure: 124/74 Respiratory Rate: 16 Pulse Ox: 100 Oxygen Delivery Method: Room Air Airway Assessment Mouth opens: >3 cm Mallampati Score: II Teeth Condition: Caps/Crowns ([place] on #8 tooth.) Neck Range of motion (ROM): Full ROM Focused Labs Anesthesia Preop lab: CBC WBC 4.0 K/mm3 (4.4-11.0) L 08/28/22 09:08 08/28/22 RBC 5.05 M/mm3 (4.6-6.2) 08/28/22 09:08 08/28/22 Hgb 15.5 g/dL (13.0-16.5) 08/28/22 09:08 08/28/22 Hct 44.9 % (40-54) 08/28/22 09:08 08/28/22 Plt Count 242 K/mm3 (150-450) 08/28/22 09:08 08/28/22 CHEMISTRY Potassium 4.0 mmol/L (3.5-5.1) 03/12/23 09:32 03/12/23 Sodium 138 mmol/L (136-145) 03/12/23 09:32 03/12/23 BUN 14 mg/dL (7-18) 03/12/23 09:32 03/12/23 Creatinine 0.83 mg/dL (0.70-1.30) 03/12/23 09:32 03/12/23 Glucose 94 mg/dL (74-106) 03/12/23 09:32 03/12/23 TSH 1.73 uIU/mL (0.358-3.74) 10/06/18 11: COAG Pre-Assessment Diagnosis/Proposed Procedure Planned Operative Procedure(s): EGD, COLONOSCOPY Anesthesia History Anesthesia History - medical field representative: Anesthesia History - medical field representative Hx Hospitalization No 07/14/24 16:06 Any Problems With Anesthesia No 07/14/24 16:06 Cholinesterase deficiency No 07/14/24 16:06 You/Your Family Experience No 07/14/24 16:06 fever (hyperthermia) with Relationship Recent Exposure to Contagious No 07/18/24 08:39 Disease Does patient have nerve No 07/14/24 16:06 stimulator Patient instructed to have device shut off --Does patient have Pacemaker No 07/18/24 08:39 or ICD? When Was Last Pacemaker Check QUESTION #4 FULL TEXT: You/Your Family Experience fever (hyperthermia) with Anesthesia Last Oral Intake Last Oral intake: Last Oral Intake NPO since 05:45 07/18/24 08:39 Meds taken in AM with sips of No 07/18/24 08:39 water? Meds patient instructed to take am of surgery Any additional information?: Yes NPO since: 05:45 (Patient finished prep at 5:45 AM.) PONV PONV - medical field representative: PONV - medical field representative Female No 07/14/24 16:06 HX of Motion Sickness No 07/14/24 16:06 HX of N/V After Surgery No 07/14/24 16:06 Non-Smoker Yes 07/14/24 16:06 Duration of Surgery greater No 07/14/24 16:06 than 60 minutes Number of Risk Factors 1 07/14/24 16:06 PONV Score Low Risk 07/14/24 16:06 Height & Weight Height & Weight: Anesthesia: Height & Weight Height 5 ft 10 in 07/18/24 08:39 Weight: 70.3 kg 07/18/24 08:39 Body Mass Index (BMI) 22.2 07/18/24 08:39 Respiratory Assessment Respiratory Assessment - medical field representative: Respiratory Tract Infection Hx - medical field representative Hx Respiratory Tract Infection No 07/14/24 16:06 STOP Sleep Apnea STOP Sleep Apnea - medical field representative: STOP Sleep Apnea - medical field representative Hx Hypertension No 07/14/24 16:06 Hx Sleep Apnea No 07/14/24 16:06 CPAP BIPAP Do you snore loudly (louder No 07/18/24 08:12 than talking or can be heard Do you often feel tired/ No 07/18/24 08:12 fatigued/ sleepy during daytime? Has anyone observed you stop No 07/18/24 08:12 breathing during sleep? STOP Results Negative 07/18/24 08:12 QUESTION #5 FULL TEXT : Do you snore loudly (louder than talking or can be heard through closed doors)? 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 Specify any problems Hx of Preganancy in last 3 N/A 07/14/24 16:06 Months Nurse Filling Out Transfusion JZOLLINGE 07/14/24 16:06 & Questions: Date: 07/14/24 07/14/24 16:06 Time: 16:09 07/14/24 16:06 Patient unable to answer at this time (ie. confused, unrespo /Reproduction History /Reproductive History - medical field representative: /Reproductive Hx- medical field representative Hx Now No 07/18/24 08:12 Gestational Age (in weeks): EDC: Hx Hx Para Hx Section SAB No 07/14/24 16:06 PFSH Medical History Loss of consciousness Difficulty swallowing Non-smoker Urticaria Iron deficiency anemia Vitamin D deficiency Home Medications ?Medication ?Instructions ?Recorded ?Last Taken ?Type NK 07/14/24 Unknown History Allergy/AdvReac Type Severity Reaction Status Date / Time No Known Allergies Allergy Verified 07/18/24 08:35 Family History Father Heart disease Atrial Flutter/RFA/MVP Osteoporosis Father's brothers and sisters also have osteoporsis Grandfather CVA (cerebral vascular accident) Mother Glaucoma Surgical History (Updated 07/18/24 @ 09:[address] Sav Beckham MD) S/P tonsillectomy Wrist fracture, bilateral Social History household members: spouse and children number of children: 2 current occupational status: employed current occupation: [employer] Smoking Status: Never smoker alcohol intake: never substance use type: does not use caffeine: Yes (twice a month) Type: coffee Review of Systems (Anesthesia) ROS Narrative System reviewed and no additional complaints, except as documented.
--- NOTE | 2024-07-18 09:15 | COLBX_PTH ---
PATIENT: CORBY WONG LOC: EN U#:[id number] AGE/SX: 43/M ROOM: RE07/18/[address]: Dr. Cadence Armendariz MD : 1980 BED: DIS: 07/18/2024 SPEC #: [id number] RECD: 07/18/24 13:19 STATUS: TIERNEY JAYCEE #: [id number] SUNDAR: 07/18/24 09:[address]: Cadence Armendariz DEPT: SURGICAL PATHOLOGY RECD BY: Cony Santillan ENTERED: 07/18/24 13:36 SP TYPE: COLON BX OTHR DR: Dr. Glenroy Doherty MD Tissues: A - Ascending colon B - Transverse colon Procedures: Surgery Specimen Level IV HEADER OPERATION: Colonoscopy, EGD PRE-OP DIAGNOSIS: Encounter for screening for malignant neoplasm of colon TISSUE SUBMITTED: A- Ascending colon polyp biopsy, B- Transverse colon polyp biopsy MICROSCOPIC DIAGNOSIS A. Ascending colon, polyp, biopsy: * Mucosal lymphoid aggregate, favor benign. B. Transverse colon, polyp, biopsy: * Mucosal lymphoid aggregate, favor benign. MICROSCOPIC DESCRIPTION Slides are reviewed. GROSS DESCRIPTION A. Received in fixative is one container labeled with the patient's name and designated Ascending colon polyp biopsy. The specimen consists of one irregular fragment of light dooley soft tissue that measures 0.3 x 0.3 x 0.2 cm. The specimen is totally submitted in one cassette. B. Received in fixative is one container labeled with the patient's name and designated Transverse colon polyp biopsy. The specimen consists of one irregular fragment of light dooley soft tissue that measures 0.3 x 0.3 x 0.1 cm. The specimen is totally submitted in one cassette. / 07/18/2024 CPT:[id number] ADDENDUM ADDENDUM ADDENDUM ADDENDUM 07/22/2024 12:50 ADDENDUM 07/22/2024 12:50 ADDENDUM 07/22/2024 12:50 ADDENDUM 07/22/2024 12:50 ADDENDUM 07/22/2024 12:50 A, B) The lymphoid aggregates appear benign/reactive by routine H&E histology. If clinical concern for a lymphoproliferative disorder is high, please contact the laboratory to request further evaluation.
--- NOTE | 2024-07-18 10:23 | PCM.POST.ANE ---
Anesthesia: Postop Eval I Current Vital Signs Temperature: 96.9 F Pulse Rate: 67 Blood Pressure: 97/63 Respiratory Rate: 20 Pulse Ox: 97 Oxygen Delivery Method: Room Air Assessment Airway patent: Yes Spontaneous unlabored respirations: Yes Mental status: Asleep nausea: No Vomiting: No Anesthesia Complication: No Fluid Hydration Crystalloid volume administer (ml): 30 Total IV fluid infused: 30 Progress Note Anesthesia document: Postop Eval 1 completed: Yes
--- NOTE | 2024-07-18 10:24 | OP.COLON_ITS ---
Patient Name: Lucien Benoit Procedure Date: 07/18/2024 9:42 AM Date of : 1980 Age: 43 Procedure: Colonoscopy Indications: Screening for colorectal malignant neoplasm Providers: Cadence Armendariz MD Referring MD: Glenroy Doherty Medicines: Monitored Anesthesia Care Patient Profile: This is a 43 year old male. Last Colonoscopy: none. The patient's first colonoscopy is today. Complications: No immediate complications. Procedure: Pre-Anesthesia Assessment: - Prior to the procedure, a History and Physical was performed, and patient medications and allergies were reviewed. The patient's tolerance of previous anesthesia was also reviewed. The risks and benefits of the procedure and the sedation options and risks were discussed with the patient. All questions were answered, and informed consent was obtained. Prior Anticoagulants: The patient has taken no anticoagulant or antiplatelet agents. ASA Grade Assessment: Per anesthesia. After reviewing the risks and benefits, the patient was deemed in satisfactory condition to undergo the procedure. After I obtained informed consent, the scope was passed under direct vision. Throughout the procedure, the patient's blood pressure, pulse, and oxygen saturations were monitored continuously. The pediatric colonoscope was introduced through the anus and advanced to the cecum, identified by the appendiceal orifice, ileocecal valve and palpation. The colonoscopy was somewhat difficult due to a tortuous colon. The patient tolerated the procedure well. The quality of the bowel preparation was good. Scope In: 9:52:00 AM Scope Withdrawal Time 0 hours 10 minutes 35 seconds Scope Out: 10:15:45 AM Total Procedure Duration Time 0 hours 23 minutes 45 seconds Findings: Hemorrhoids were found on perianal exam. Non-bleeding internal hemorrhoids were found. The hemorrhoids were Grade I (internal hemorrhoids that do not prolapse). Two sessile polyps were found in the transverse colon and ascending colon. The polyps were less than 5 mm in size. These polyps were removed with a cold biopsy forceps. Resection and retrieval were complete. The exam was otherwise without abnormality on direct and retroflexion views. The exam was otherwise without abnormality. Impression: - Hemorrhoids found on perianal exam. - Non-bleeding internal hemorrhoids. - Two less than 5 mm polyps in the transverse colon and in the ascending colon, removed with a cold biopsy forceps. Resected and retrieved. - The examination was otherwise normal on direct and retroflexion views. - The examination was otherwise normal. Recommendation: - Discharge patient to home. - Resume previous diet. - Continue present medications. - Await pathology results. - Repeat colonoscopy in 5-10 years for surveillance based on pathology results. Procedure Code(s): --- Professional --- 40083, PT, Colonoscopy, flexible; with biopsy, single or multiple Diagnosis Code(s): --- Professional --- Z12.11, Encounter for screening for malignant neoplasm of colon K64.0, First degree hemorrhoids D12.3, Benign neoplasm of transverse colon (hepatic flexure or splenic flexure) D12.2, Benign neoplasm of ascending colon CPT copyright 2021 [employer]. All rights reserved. The codes documented in this report are preliminary and upon gluing machine operator automatic review may be revised to meet current compliance requirements. MD Cadence Ball MD 07/18/2024 10:24:19 AM This report has been signed electronically. Number of Addenda: 0 Note Initiated On: 07/18/2024 9:42 AM
--- NOTE | 2024-07-18 10:25 | OP.CCLET_ITS ---
07/18/2024 Glenroy Doherty [address] [place] [address] Re : Colonoscopy procedure for Lucien Bemoy Dear Dr. Doherty This procedure was performed on Thursday, July 18, 2024. My impressions and recommendations are as follows: Impressions : - Hemorrhoids found on perianal exam. - Non-bleeding internal hemorrhoids. - Two less than 5 mm polyps in the transverse colon and in the ascending colon, removed with a cold biopsy forceps. Resected and retrieved. - The examination was otherwise normal on direct and retroflexion views. - The examination was otherwise normal. Recommendations : - Discharge patient to home. - Resume previous diet. - Continue present medications. - Await pathology results. - Repeat colonoscopy in 5-10 years for surveillance based on pathology results. My findings are described in the full procedure note, which is enclosed. If I can be of further assistance, please feel free to contact me at Doctor phone number(s): , Work: . Sincerely, MD Cadence Ball MD 07/18/2024 10:24:19 AM This report has been signed electronically.
--- NOTE | 2024-07-18 10:35 | POSTOPAN2_ITS ---
Anesthesia Postop Eval I Sum Postop Eval Completion status Anesthesia document: Postop Eval 1 completed: Yes Anesthesia Postop Eval I Summary Anesthesia Postop Eval I Summary: Anesthesia Postop Eval I: Assessment Summary Airway patent Yes 07/18/24 10:24 [email or web address] Spontaneous unlabored Yes 07/18/24 10:24 [email or web address] respirations Mental status Asleep 07/18/24 10:24 [email or web address] nausea No 07/18/24 10:24 [email or web address] Vomiting No 07/18/24 10:24 [email or web address] Anesthesia Postop Eval I: Fluid Summary Crystalloid volume administer 30 07/18/24 10:24 [email or web address] (ml) Colloids volume administered ( ml) Blood Product volume administered (ml) Total IV fluid infused 30 07/18/24 10:24 [email or web address] Anesthesia Postop Eval I: Summary Notes Anesthesia Complication No 07/18/24 10:24 [email or web address] Anesthesia Complication Comment: Post-operative progress note Anesthesia: Postop Eval II Evaluation Mental status: Awake Pain Level: 0 nausea: No Vomiting: No
--- NOTE | 2024-07-18 10:35 | PCM.POSTANE2 ---
Anesthesia Postop Eval I Sum Postop Eval Completion status Anesthesia document: Postop Eval 1 completed: Yes Anesthesia Postop Eval I Summary Anesthesia Postop Eval I Summary: Anesthesia Postop Eval I: Assessment Summary Airway patent Yes 07/18/24 10:24 [email or web address] Spontaneous unlabored Yes 07/18/24 10:24 [email or web address] respirations Mental status Asleep 07/18/24 10:24 [email or web address] nausea No 07/18/24 10:24 [email or web address] Vomiting No 07/18/24 10:24 [email or web address] Anesthesia Postop Eval I: Fluid Summary Crystalloid volume administer 30 07/18/24 10:24 [email or web address] (ml) Colloids volume administered ( ml) Blood Product volume administered (ml) Total IV fluid infused 30 07/18/24 10:24 [email or web address] Anesthesia Postop Eval I: Summary Notes Anesthesia Complication No 07/18/24 10:24 [email or web address] Anesthesia Complication Comment: Post-operative progress note Anesthesia: Postop Eval II Evaluation Mental status: Awake Pain Level: 0 nausea: No Vomiting: No
== END 2024-07-18 11:25 | disposition home or self-care (01) ==
LOC: EN 07:52 → AC 07:53
PROVIDERS: PCP Family Medicine; Referring Provider Family Medicine; Visit Provider Surgery
PROC: 0DJD8ZZ Inspection of Lower Intestinal Tract, Via Natural or Artificial Opening Endoscopic (ICD-10-PCS; CPT 45378; principal; 2024-07-18 09:10)
DX: Z12.11 Encounter for screening for malignant neoplasm of colon (principal); R13.10 Dysphagia, unspecified; K64.0 First degree hemorrhoids; K64.4 Residual hemorrhoidal skin tags; K63.5 Polyp of colon
CPT/HCPCS: 45380; 88305; J2405

== ENCOUNTER → 2024-08-04 | Outpatient (CLI) | payer BC, SELFPAY ==
--- NOTE | 2024-08-04 08:10 | RAD_ITS ---
EXAM: Air-contrast esophagram. CLINICAL HISTORY: Dysphagia. COMPARISON: None TECHNIQUE: The patient ingested barium. Imaging was provided. Fluoroscopic time: 11.3 seconds 2.8 mGy. FINDINGS: The patient ingested barium. Imaging of the esophagus was obtained. No evidence of obstruction. No mass lesion is seen. No evidence of gastroesophageal reflux. The patient ingested a 12 mm tablet the barium without any issues. RAD/Esophagus Dual Contrast IMPRESSION: Normal air-contrast upper GI series. [facility]
== END | disposition home or self-care (01) ==
PROVIDERS: PCP Family Medicine; Referring Provider Family Medicine; Visit Provider Family Medicine
DX: R13.10 Dysphagia, unspecified (principal)
CPT/HCPCS: 74221

== ENCOUNTER 2024-09-19 07:19 | Day surgery (SDC) | payer BC, SELFPAY ==
[2024-09-19] VITALS (8 sets, daily range): BP systolic 103–109; BP diastolic 68–77; PULSE 50–65; RESP 14–18; TEMP 36.4; O2SAT 97–100; BMI 22.1
--- NOTE | 2024-09-19 07:33 | H&P.OPEN ---
HPI - General HPI Narrative CORBY WONG, is a 43 M who presents for EGD due to dysphagia. Patient feels like food, partially catches still been since late last year. Patient states that the rotary drier foods catch more maybe happens about a few times a week. Patient does not feel like it completely gets stuck. Patient colonoscopy in July but was unable to get the EGD presorted at that time. Patient sees rheumatology again in December. [facility] Medical History Loss of consciousness Difficulty swallowing Non-smoker Urticaria Iron deficiency anemia Vitamin D deficiency Home Medications ?Medication ?Instructions ?Recorded ?Last Taken ?Type NK 07/14/24 Unknown History Allergy/AdvReac Type Severity Reaction Status Date / Time No Known Allergies Allergy Verified 09/19/24 07:35 Family History Father Heart disease Atrial Flutter/RFA/MVP Osteoporosis Father's brothers and sisters also have osteoporsis Grandfather CVA (cerebral vascular accident) Mother Glaucoma Surgical History S/P tonsillectomy Wrist fracture, bilateral Social History household members: spouse and children number of children: 2 current occupational status: employed current occupation: [employer] Smoking Status: Never smoker alcohol intake: never substance use type: does not use caffeine: Yes (twice a month) Type: coffee Past Medical/Surgical History Planned Operation Planned Operative Procedure(s): EGD Previous Hospitalizations/Surgeries HX Hospitalizations: No Any Problems With Anesthesia: No You/Your Family Experience Fever (Hyperthermia) With Anes: No Cholinesterase deficiency: No Cardiovascular Hx Hypertension: No Respiratory Hx Sleep Apnea: No Hx Respiratory Tract Infection/Cold (presently): No Do You Snore Loudly (louder than talking or can be heard): No Do You Often Feel Tired/ Fatigued/ Sleepy Dring Daytime?: No Has Anyone Observed You Stop Breathing During Sleep?: No Result (for STOP score): Negative Smoking Status: Never smoker Neurological Does patient have nerve stimulator: No Miscellaneous Recent Exposure to Contagious Disease: No Allergies No Known Allergies Allergy (Verified 09/19/24 07:35) Discharge Is Pt Admitted From a Assisted, or a Custodial: No Who Could Help: DAUGHTER After D/C, Where Do you Plan to Go: Return Home Physical Exam Const alert, oriented x3 and no apparent distress HEENT normocephalic and head/scalp atraumatic Resp normal respiratory effort Cardio regular rate GI soft to palpation and non-tender; Negative for non-distended Palpation: Negative for guarding Extremity no clubbing, cyanosis or edema Skin no rashes or lesions noted Neuro CN's II-XII intact bilaterally Psych mental status grossly normal Assessment & Plan Assessment/Plan (1) Difficulty swallowing: Surgery Risks - Colonoscopy I discussed with the patient the risks of the procedure: Yes Risks Include but are not Limited To: Plan for EGD only risks include but are not limited to: Bleeding, perforation requiring further surgery.
[2024-09-19] MEDS: Lactated Ringers 1,000 ML 15 ML IV (07:42)
--- NOTE | 2024-09-19 07:47 | PRE.ANES_ITS ---
ASA Classification* ASA Classification ASA Classification: 2 Assessment & Plan Anesthesia* Anesthesia Assessment Anesthesia Assessment: Discussed sedation and/or anesthesia options, risks, benefits, and alternatives with patient/parents/legal guardian/POA. Questions invited. The patient/parents/legal guardian/POA seems to understand and agrees to proceed with anesthesia plan. Reviewed the physical assessment, medical history, allergy history and patient home medications list prior to surgery/procedure/anesthetic and documented any changes. Performed airway and anesthesia risk assessments. Anesthesia Type Anesthesia Type: MAC History Source History Obtained from:: Patient and Chart Anesthesia Focused Assessment* Temperature: 97.5 F Pulse Rate: 56 Blood Pressure: 109/76 Respiratory Rate: 18 Pulse Ox: 100 Oxygen Delivery Method: Room Air Airway Assessment Mouth opens: >3 cm Mallampati Score: I Teeth Condition: Caps/Crowns (Singer on top right incisor. ) Neck Range of motion (ROM): Full ROM Focused Labs Anesthesia Preop lab: CBC WBC 4.0 K/mm3 (4.4-11.0) L 08/28/22 09:08 08/28/22 RBC 5.05 M/mm3 (4.6-6.2) 08/28/22 09:08 08/28/22 Hgb 15.5 g/dL (13.0-16.5) 08/28/22 09:08 08/28/22 Hct 44.9 % (40-54) 08/28/22 09:08 08/28/22 Plt Count 242 K/mm3 (150-450) 08/28/22 09:08 08/28/22 CHEMISTRY Potassium 4.0 mmol/L (3.5-5.1) 03/12/23 09:32 03/12/23 Sodium 138 mmol/L (136-145) 03/12/23 09:32 03/12/23 BUN 14 mg/dL (7-18) 03/12/23 09:32 03/12/23 Creatinine 0.83 mg/dL (0.70-1.30) 03/12/23 09:32 03/12/23 Glucose 94 mg/dL (74-106) 03/12/23 09:32 03/12/23 TSH 1.73 uIU/mL (0.358-3.74) 10/06/18 11: COAG Pre-Assessment Diagnosis/Proposed Procedure Planned Operative Procedure(s): EGD Anesthesia History Anesthesia History - miller helper: Anesthesia History - miller helper Hx Hospitalization No 09/19/24 07:33 Any Problems With Anesthesia No 09/19/24 07:33 Cholinesterase deficiency No 09/19/24 07:33 You/Your Family Experience No 09/19/24 07:33 fever (hyperthermia) with Relationship Recent Exposure to Contagious No 09/19/24 07:35 Disease Does patient have nerve No 09/19/24 07:33 stimulator Patient instructed to have device shut off --Does patient have Pacemaker or ICD? When Was Last Pacemaker Check QUESTION #4 FULL TEXT: You/Your Family Experience fever (hyperthermia) with Anesthesia Any additional information?: No Last Oral Intake Last Oral intake: Last Oral Intake NPO since 22:30 09/19/24 07:35 Meds taken in AM with sips of water? Meds patient instructed to take am of surgery Any additional information?: No PONV PONV - miller helper: PONV - miller helper Female No 09/15/24 13:52 HX of Motion Sickness No 09/15/24 13:52 HX of N/V After Surgery No 09/15/24 13:52 Non-Smoker Yes 09/15/24 13:52 Duration of Surgery greater No 09/15/24 13:52 than 60 minutes Number of Risk Factors 1 09/15/24 13:52 PONV Score Low Risk 09/15/24 13:52 Any additional information?: No Height & Weight Height & Weight: Anesthesia: Height & Weight Height 5 ft 10 in 09/19/24 07:35 Weight: 70 kg 09/19/24 07:35 Body Mass Index (BMI) 22.1 09/19/24 07:35 Respiratory Assessment Respiratory Assessment - miller helper: Respiratory Tract Infection Hx - miller helper Hx Respiratory Tract Infection No 09/19/24 07:33 Any additional information?: No STOP Sleep Apnea STOP Sleep Apnea - miller helper: STOP Sleep Apnea - miller helper Hx Hypertension No 09/19/24 07:33 Hx Sleep Apnea No 09/19/24 07:33 CPAP BIPAP Do you snore loudly (louder No 09/19/24 07:33 than talking or can be heard Do you often feel tired/ No 09/19/24 07:33 fatigued/ sleepy during daytime? Has anyone observed you stop No 09/19/24 07:33 breathing during sleep? STOP Results Negative 09/19/24 07:33 QUESTION #5 FULL TEXT : Do you snore loudly (louder than talking or can be heard through closed doors)? Any additional information?: No Tobacco Use History Tobacco Use History - miller helper: Tobacco Use History - miller helper Tobacco Use Smoking Status Never smoker 09/19/24 07:33 Hx Tobacco Use No 09/15/24 13:52 Years Smoking Packs Smoked per Day Smoking Cessation Date was within the last 15 years Hx Smoking Cessation Date Hx Smoking Cessation Counseling Any additional information?: No Hematologic Medial History Hematologic Hx - miller helper: Hematologic Medical Hx - pricing strategist Hx of Blood Transfusion No 09/15/24 13:52 Hx of Transfusion in last 3 No 09/15/24 13:52 Months Date of Last Transfusion (if within last 3 months) Ever experience any problems No 09/15/24 13:52 with transfusion(s)? Specify any problems Hx of Preganancy in last 3 N/A 09/15/24 13:52 Months Nurse Filling Out Transfusion VLEHDANESE 09/15/24 13:52 & Questions: Date: 09/15/24 09/15/24 13:52 Time: 13:53 09/15/24 13:52 Patient unable to answer at this time (ie. confused, unrespo Any additional information?: No /Reproduction History /Reproductive History - miller helper: /Reproductive Hx- miller helper Hx Now Gestational Age (in weeks): EDC: Hx Hx Para Hx Section SAB No 07/14/24 16:06 Any additional information?: No Active Medications Active Medications: Current Medications Generic Name Dose Route Start Last Admin Trade Name Freq PRN Reason Stop Dose Admin Lactated Ringer's 1,000 mls @ 15 mls/hr 09/19/24 07:30 09/19/24 07:42 IV 15 mls/hr .Q48H JUSTIN Administration PFSH Medical History Loss of consciousness Difficulty swallowing Non-smoker Urticaria Iron deficiency anemia Vitamin D deficiency Home Medications ?Medication ?Instructions ?Recorded ?Last Taken ?Type NK 07/14/24 Unknown History Allergy/AdvReac Type Severity Reaction Status Date / Time No Known Allergies Allergy Verified 09/19/24 07:35 Family History Father Heart disease Atrial Flutter/RFA/MVP Osteoporosis Father's brothers and sisters also have osteoporsis Grandfather CVA (cerebral vascular accident) Mother Glaucoma Surgical History S/P tonsillectomy Wrist fracture, bilateral Social History household members: spouse and children number of children: 2 current occupational status: employed current occupation: [employer] Smoking Status: Never smoker alcohol intake: never substance use type: does not use caffeine: Yes (twice a month) Type: coffee Review of Systems (Anesthesia) ROS Narrative System reviewed and no additional complaints, except as documented.
--- NOTE | 2024-09-19 08:30 | EGD_PTH ---
PATIENT: CORBY WONG LOC: EN U#:[id number] AGE/SX: 43/M ROOM: RE09/19/[address]: Dr. Cadence Armendariz MD : 1980 BED: DIS: 09/19/2024 SPEC #: [id number] RECD: 09/19/24 11:21 STATUS: TIERNEY REQ #: [id number] SUNDAR: 09/19/24 08:[address]: Cadence Armendariz DEPT: SURGICAL PATHOLOGY RECD BY: Ronnell Corby ENTERED: 09/19/24 13:55 SP TYPE: EGD BIOPSY OT DR: Dr. Glenroy Doherty MD Tissues: A - Gastric mucous membrane Procedures: Immunohistochemical Stains Surgery Specimen Level IV HEADER OPERATION: EGD with biopsy PRE-OP DIAGNOSIS: Difficulty swallowing TISSUE SUBMITTED: A- Antrum biopsy MICROSCOPIC DIAGNOSIS A. Stomach, antrum, biopsy: Antral/transitional mucosa with features of reactive gastropathy. IHC negative for H.pylori organisms. MICROSCOPIC DESCRIPTION Slides are reviewed. All matched controls reacted appropriately. These tests were developed and their performance characteristics determined by [facility]. They may not have been cleared or approved by the U.S. Food and Drug Administration. The FDA has determined that such clearance or approval is not necessary. The above immunohistochemical/dualISH markers are ordered and reviewed by the Pathologist. GROSS DESCRIPTION A. Received in formalin in a container labeled with the patient's name, date of , and antrum for H. pylori and path are 2 dooley-pink fragments of mucosal tissue measuring 0.2 x 0.1 x 0.1 cm and 0.5 x 0.3 x 0.2 cm. Submitted in toto in A1. [facility] 09-19-2024 CPT:27708,56984
--- NOTE | 2024-09-19 10:32 | OP.CCLET_ITS ---
09/19/2024 Glenroy Doherty [address] [facility] [facility] [address] [place] [address] Re : Upper GI endoscopy procedure for Lucien Benoit Dear Dr. Doherty This procedure was performed on Thursday, September 19, 2024. My impressions and recommendations are as follows: Impressions : - Z-line regular, 40 cm from the incisors. - Erythematous mucosa in the antrum. Biopsied. - Normal examined duodenum. - No gross lesions in the entire esophagus. Recommendations : - Await pathology results. - Discharge patient to home. - Resume previous diet. - Continue present medications. - Await pathology results. My findings are described in the full procedure note, which is enclosed. If I can be of further assistance, please feel free to contact me at Doctor phone number(s): , Work: . Sincerely, MD Cadence Ball MD 09/19/2024 10:32:18 AM This report has been signed electronically.
--- NOTE | 2024-09-19 10:32 | OP.EGD_ITS ---
Patient Name: Lucien Benoit Procedure Date: 09/19/2024 10:16 AM Date of : 1980 Age: 43 Procedure: Upper GI endoscopy Indications: Dysphagia Providers: Cadence Armendariz MD Referring MD: Glenroy Doherty Medicines: Monitored Anesthesia Care Patient Profile: This is a 43 year old male. Complications: No immediate complications. Procedure: Pre-Anesthesia Assessment: - Prior to the procedure, a History and Physical was performed, and patient medications and allergies were reviewed. The patient's tolerance of previous anesthesia was also reviewed. The risks and benefits of the procedure and the sedation options and risks were discussed with the patient. All questions were answered, and informed consent was obtained. Prior Anticoagulants: The patient has taken no anticoagulant or antiplatelet agents. ASA Grade Assessment: Per anesthesia. After reviewing the risks and benefits, the patient was deemed in satisfactory condition to undergo the procedure. After obtaining informed consent, the endoscope was passed under direct vision. Throughout the procedure, the patient's blood pressure, pulse, and oxygen saturations were monitored continuously. The Endoscope was introduced through the mouth, and advanced to the second part of duodenum. The upper GI endoscopy was accomplished without difficulty. The patient tolerated the procedure well. Scope In: 10:24:06 AM Scope Out: 10:26:58 AM Total Procedure Duration Time 0 hours 2 minutes 52 seconds Findings: The Z-line was regular and was found 40 cm from the incisors. Mildly erythematous mucosa without bleeding was found in the gastric antrum. Biopsies were taken with a cold forceps for histology. Biopsies were taken with a cold forceps for Helicobacter pylori cultures. The examined duodenum was normal. The cardia and gastric fundus were normal on retroflexion. No gross lesions were noted in the entire esophagus. Impression: - Z-line regular, 40 cm from the incisors. - Erythematous mucosa in the antrum. Biopsied. - Normal examined duodenum. - No gross lesions in the entire esophagus. Recommendation: - Await pathology results. - Discharge patient to home. - Resume previous diet. - Continue present medications. - Await pathology results. Procedure Code(s): --- Professional --- 78485, Esophagogastroduodenoscopy, flexible, transoral; with biopsy, single or multiple Diagnosis Code(s): --- Professional --- K22.89, Other specified disease of esophagus K31.89, Other diseases of stomach and duodenum R13.10, Dysphagia, unspecified CPT copyright 2021 [employer]. All rights reserved. The codes documented in this report are preliminary and upon screen printing supervisor review may be revised to meet current compliance requirements. MD Cadence Ball MD 09/19/2024 10:32:18 AM This report has been signed electronically. Number of Addenda: 0 Note Initiated On: 09/19/2024 10:16 AM
--- NOTE | 2024-09-19 10:34 | PCM.POST.ANE ---
Anesthesia: Postop Eval I Current Vital Signs Temperature: 97.6 F Pulse Rate: 65 Blood Pressure: 106/70 Respiratory Rate: 16 Pulse Ox: 97 Oxygen Delivery Method: Room Air Assessment Airway patent: Yes Spontaneous unlabored respirations: Yes Mental status: Awake nausea: No Vomiting: No Anesthesia Complication: No Fluid Hydration Crystalloid volume administer (ml): 1,000 Total IV fluid infused: 1,000 Progress Note Anesthesia document: Postop Eval 1 completed: Yes
--- NOTE | 2024-09-19 10:48 | POSTOPAN2_ITS ---
Anesthesia Postop Eval I Sum Postop Eval Completion status Anesthesia document: Postop Eval 1 completed: Yes Anesthesia Postop Eval I Summary Anesthesia Postop Eval I Summary: Anesthesia Postop Eval I: Assessment Summary Airway patent Yes 09/19/24 10:35 TRAILER [email or web address] Spontaneous unlabored Yes 09/19/24 10:35 TRAILER [email or web address] respirations Mental status Awake 09/19/24 10:35 TRAILER [email or web address] nausea No 09/19/24 10:35 TRAILER [email or web address] Vomiting No 09/19/24 10:35 TRAILER [email or web address] Anesthesia Postop Eval I: Fluid Summary Crystalloid volume administer 1,000 09/19/24 10:35 TRAILER [email or web address] (ml) Colloids volume administered ( ml) Blood Product volume administered (ml) Total IV fluid infused 1,000 09/19/24 10:35 TRAILER [email or web address] Anesthesia Postop Eval I: Summary Notes Anesthesia Complication No 09/19/24 10:35 TRAILER [email or web address] Anesthesia Complication Comment: Post-operative progress note Anesthesia: Postop Eval II Evaluation Mental status: Awake Pain Level: 0 nausea: No Vomiting: No
--- NOTE | 2024-09-19 10:48 | PCM.POSTANE2 ---
Anesthesia Postop Eval I Sum Postop Eval Completion status Anesthesia document: Postop Eval 1 completed: Yes Anesthesia Postop Eval I Summary Anesthesia Postop Eval I Summary: Anesthesia Postop Eval I: Assessment Summary Airway patent Yes 09/19/24 10:35 IMAGING [email or web address] Spontaneous unlabored Yes 09/19/24 10:35 IMAGING [email or web address] respirations Mental status Awake 09/19/24 10:35 IMAGING [email or web address] nausea No 09/19/24 10:35 IMAGING SPECIALIST.[email or web address] Vomiting No 09/19/24 10:35 IMAGING [email or web address].[email or web address] Anesthesia Postop Eval I: Fluid Summary Crystalloid volume administer 1,000 09/19/24 10:35 IMAGING [email or web address] (ml) Colloids volume administered ( ml) Blood Product volume administered (ml) Total IV fluid infused 1,000 09/19/24 10:35 IMAGING [email or web address] Anesthesia Postop Eval I: Summary Notes Anesthesia Complication No 09/19/24 10:35 IMAGING [email or web address].[email or web address] Anesthesia Complication Comment: Post-operative progress note Anesthesia: Postop Eval II Evaluation Mental status: Awake Pain Level: 0 nausea: No Vomiting: No
== END 2024-09-19 11:18 | disposition home or self-care (01) ==
LOC: EN 07:21 → AC 07:22
PROVIDERS: PCP Family Medicine; Referring Provider Family Medicine; Visit Provider Surgery
PROC: 0DJ08ZZ Inspection of Upper Intestinal Tract, Via Natural or Artificial Opening Endoscopic (ICD-10-PCS; CPT 43235; principal; 2024-09-19 08:25)
DX: R13.10 Dysphagia, unspecified (principal); K31.89 Other diseases of stomach and duodenum; K22.89 Other specified disease of esophagus
CPT/HCPCS: 43239; 88305; 88342

== ENCOUNTER → 2025-04-21 | Outpatient (CLI) | payer BC, SELFPAY ==
[2025-04-21 12:06] LABS: Hematocrit 38.2 % (40-54); Hemoglobin 13.1 g/dL (13.0-16.5); Immature Granulocytes Count 0.010 X10^3/uL (0.0-0.0); Mean Corp Hgb Conc 34.3 g/dL (32-36); Mean Corpuscular Volume 87.6 fL (80-94); Mean Platelet Vol. 9.1 fl (6.2-12.0); NRBC Flagged by Analyzer 0 % (0-5); Platelet Count 340 K/mm3 (150-450); RBC Distribution Width CV 12.4 % (11.6-14.6); RBC Distribution Width SD 40.3 fl (35.1-43.9); Red Blood Count 4.36 M/mm3 (4.6-6.2); White Blood Count 5.2 K/mm3 (4.4-11.0)
[2025-04-21 12:31] LABS: AST(SGOT) 26 U/L (<=37); Alanine Aminotransfer ALT/SGPT 14 U/L (<=46); Albumin, Serum 4.2 g/dL (3.5-5.0); Alkaline Phosphatase 50 U/L (40-129); Anion Gap 7 (5-15); BUN 15 mg/dL (4-19); BUN/Creat Ratio 16.6 RATIO (10-20); Calcium,Total 8.7 mg/dL (7.6-11.0); Carbon Dioxide 28.6 mmol/L (21.0-32.0); Chloride 103 mmol/L (98-108); Cholesterol 158 mg/dL (<=200); Ferritin 19 ng/mL (37-417); Globulin 2.9 g/dL (2.2-4.2); Glucose 103 mg/dL (70-99); Low Density Lipoprotein Calc. 97 mg/dL; Potassium 4.2 mmol/L (3.3-5.1); Triglycerides 60 mg/dL; Very Low Density Lipoprotein 12 mg/dL (5-40); Vitamin D,25 Hydroxy 24.9 ng/mL (30-100); cholesterol:hdl ratio screen 3.20
== END | disposition home or self-care (01) ==
LOC: LAB 11:31
PROVIDERS: PCP Family Medicine; Referring Provider Family Medicine; Visit Provider Family Medicine
DX: R73.9 Hyperglycemia, unspecified (principal); D50.9 Iron deficiency anemia, unspecified; E55.9 Vitamin D deficiency, unspecified
CPT/HCPCS: 36415; 80053; 80061; 82306; 82728; 83036; 85025